=== PATIENT | male | born 1965 | race Caucasian/White ===

== ENCOUNTER 2018-03-26 13:40 | Emergency (ER) | payer MEDICAID ==
[~2018-03-26] VITALS: Ht 167.6 cm; Wt 61.0 kg
[2018-03-26 16:57] VITALS: BP 122/70
== END 2018-03-26 16:58 | disposition home or self-care (01) ==
LOC: ER 13:40
DX: Z76.0 Encounter for issue of repeat prescription (principal)
CPT/HCPCS: 99282

== ENCOUNTER 2020-09-05 00:16 | Emergency (ER) | payer MEDICAID ==
[~2020-09-05] VITALS: Ht 154.9 cm; Wt 57.9 kg
[2020-09-05 01:11] VITALS: BP 113/74
[2020-09-05] MEDS ORDERED: KETOROLAC 60MG/2ML VIAL IM STA (01:16)
[2020-09-05] MEDS ORDERED: NAPR-681 PO (01:31)
[2020-09-05] MEDS ORDERED: DICL100G16 TP (01:31)
== END 2020-09-05 03:33 | disposition home or self-care (01) ==
LOC: ER 00:16
DX: M25.511 Pain in right shoulder (principal)
CPT/HCPCS: 96372; 99283; J1885

== ENCOUNTER 2024-02-16 11:16 | Emergency (ER) | payer MEDICAID ==
[~2024-02-16] VITALS: Ht 157.5 cm; Wt 60.0 kg
[~2024-02-16 11:16] MED LIST: FOLI-43 PO; THIA100T72 PO
[2024-02-16 11:28] VITALS: O2SAT 100
[2024-02-16] MEDS ORDERED: IBUP-2028 MT (12:05)
[2024-02-16 12:18] VITALS: BP 134/70; PULSE 83; RESP 18; TEMP 36.66960; O2SAT 100
== END 2024-02-16 12:19 | disposition home or self-care (01) ==
LOC: ER 11:31
DX: M54.2 Cervicalgia (principal); F19.90 Other psychoactive substance use, unspecified, uncomplicated; F10.20 Alcohol dependence, uncomplicated; Y90.9 Presence of alcohol in blood, level not specified
CPT/HCPCS: 99282